=== PATIENT | male | born 1950 | race Caucasian/White ===

== ENCOUNTER → 2020-11-20 | Outpatient (CLI) | payer MEDICARE, OTHER | LOC: KOH-I 10-22 11:30 | DX: F17.210 Nicotine dependence, cigarettes, uncomplicated (principal) | CPT/HCPCS: 71271 ==

== ENCOUNTER → 2021-11-21 | Outpatient (CLI) | payer MEDICARE, OTHER | LOC: KOH-I 11:07 | DX: Z87.891 Personal history of nicotine dependence (principal) | CPT/HCPCS: 71271 ==